=== PATIENT | female | born 1995 | race Caucasian/White ===

== ENCOUNTER 2022-01-17 20:58 | Emergency (ER) | payer OTHER ==
[~2022-01-17 20:58] MED LIST: IBU600 MG PO; IBUPROFEN600 MG PO; LODINE CAP 300300 MG PO; PYRIDIUM100 MG PO; ZOFRAN ODT 4 MG4 MG PO; ZOFRAN ODT 4 MG4 MG SL
[2022-01-17 21:37] LABS: HEMOGLOBIN 14.3 gm/dl (12.3-15.3); RED BLOOD COUNT 5.12 M/UL (4.00-5.10); WHITE BLOOD COUNT 9.4 K/UL (4.5-11.0)
[2022-01-17 21:45] LABS: BUN/CREATININE RATIO 20 (0-10)
[2022-01-18] MEDS ORDERED: ZOFRAN ODT 4 MG4 MG PO (01:44)
[2022-01-18] MEDS ORDERED: BENTYL 20MG TAB20 MG PO (01:44)
== END 2022-01-18 01:53 | disposition home or self-care (01) ==
LOC: ER1 20:58
PROVIDERS: Physician Assistant
DX: U07.1 COVID-19 (principal); K52.9 Noninfective gastroenteritis and colitis, unspecified; D64.9 Anemia, unspecified; Z90.89 Acquired absence of other organs; F17.200 Nicotine dependence, unspecified, uncomplicated
CPT/HCPCS: 80053; 81001; 83690; 85025; 99284; Q9967

== ENCOUNTER 2022-01-23 07:07 | Emergency (ER) | payer OTHER ==
[~2022-01-23 07:07] MED LIST changes: +BENTYL 20MG TAB20 MG PO
[2022-01-23 11:43] LABS: HEMOGLOBIN 13.8 gm/dl (12.3-15.3); RED BLOOD COUNT 4.99 M/UL (4.00-5.10); WHITE BLOOD COUNT 12.1 K/UL (4.5-11.0)
[2022-01-23 12:03] LABS: BUN/CREATININE RATIO 11 (0-10)
== END 2022-01-23 15:15 | disposition home or self-care (01) ==
LOC: ER1 07:07
PROVIDERS: Nurse Practitioner
DX: R11.0 Nausea (principal); R10.13 Epigastric pain; R10.816 Epigastric abdominal tenderness; E66.9 Obesity, unspecified; F17.290 Nicotine dependence, other tobacco product, uncomplicated
CPT/HCPCS: 80053; 81001; 83605; 83690; 84703; 85025; 87086; 96374; 99284; J1885